=== PATIENT | male | born 1990 | race Caucasian/White ===

== ENCOUNTER 2017-10-20 08:51 | Emergency (ER) | payer OTHER ==
--- NOTE | 2017-10-20 09:09 | EDPHY ---
General Narrative: CHIEF COMPLAINT: Vomiting, diarrhea, high blood sugars HISTORY OF PRESENT ILLNESS: Patient complains of vomiting, diarrhea and high blood sugar. Over the past 24 hr he has had multiple episodes of vomiting and some diarrhea. No severe abdominal pain with this. He does note his blood sugars have been between 300- 350, as raised by his Dexcom monitoring device. He is also tested this by fingerstick with the same readings. He is still very dehydrated and thirsty, his urination has been frequent. He has a home urine test kit which did reveal ketones. He had a recent influenza type symptoms over [place] that he thinks has resolved. He has no sore throat or cough. No chest pain or shortness of breath. No rashes or lesions. No headache, neck pain or stiffness. No other associated complaints or modifying factors. REVIEW OF SYSTEMS: Ten systems reviewed and are negative unless otherwise noted in the HPI PCP: Dr. 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 Occasional rare alcohol use. No drug use. 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 Airway patent. No erythema or edema Neck: Normal inspection, supple, non-tender Respiratory: Lungs are clear to auscultation. No wheezing, rhonchi or crackles Cardiovascular: Tachycardic rate with regular rhythm. Gastrointestinal: Abdomen is soft and nontender. No distention or tympany. No rigidity. No guarding Back: non-tender, no bony abnormalities Neurological: GCS 15. A&O, nonfocal, strength is symmetric in all 4 limbs. Skin: Warm and dry, no rash cellulitis or lesions. Extremities: Nontender, no pedal edema Psychiatric: Mood and affect normal DIFFERENTIAL DIAGNOSES: Including but not limited to DKA, HHS, hyperglycemia, influenza, gastroenteritis MDM: 9:10 a.m. Vomiting with diarrhea and hyperglycemia with suspected DKA. Patient also noted ketones in his urine this morning. He is awake and alert no acute distress. No delirium or encephalopathy. Vital signs are stable with exception of tachycardia. He is afebrile. He does not meet SIRS criteria. I have ordered DKA workup including 2 L IV fluid, chest x-ray, urine and influenza test. I will discuss with Dr. Geronimo 9:20 a.m. Chemistry reveals a glucose of 222, anion gap of 19. VBG reveals a normal pH is 7.38. I have ordered 5 U of regular insulin IV. We will continue IV fluid resuscitation and recheck. 10:05 a.m. Patient is positive for influenza A. Chest x-ray is unremarkable for pneumonia or effusion. Vital signs remained stable with mild tachycardia but no hypoxia. He has received IV fluid and IV insulin. I will recheck his chemistry 10:30 a.m. Patient re-evaluated. Resting comfortably. Heart rate is improved to 103 beats per minute. He has received 2 L IV fluid. Will recheck his chemistry for anion gap evaluation at 10:45 a.m., 1 hr post insulin injection. 10:55 a.m. Repeat chemistries been drawn. I have re-evaluated the patient at this time. He has had 2 additional bouts of diarrhea since arrival, thus I have ordered a GI pathogen panel and 3rd L of IV fluid. 1:00 p.m. Repeat chemistry reveals minimal improvement in his electrolytes but these are stable. He does have some improvement in the glucose as well. Dr. Geronimo has evaluated this and he will evaluate the patient. 1:05 p.m. Patient has been evaluated by Dr. Geronimo. He is not febrile. We have ordered Tylenol, ibuprofen, nausea medicine IV fluid. Re-evaluated 1 hr. 2:15 p.m. Patient re-evaluated. This is 1 hr post Tylenol, ibuprofen, Zofran and additional L IV fluid. He is no longer nauseated. He has not vomited. He has provide a stool sample. I offered admission to the hospital for further fluid resuscitation and glucose management. He has declined. He would like to go home. I do feel that this is reasonable at this time. He does have a positive influenza, thus he will likely have symptoms for 1-2 weeks. We discussed strict ED precautions for any difficulty keeping liquids down, persistent fever or increasing blood sugar. We discussed increasing his fluid intake, nausea medications and Tylenol with codeine. We also discussed Tamiflu as commenced here. He is comfortable this plan. He will contact his primary care physician. He is discharged home stable condition. 3:55 p.m. Patient has already been discharged with I have reviewed his GI pathogen panel. It is positive for norovirus. I have just contacted him to discuss. We discussed hand hygiene and the importance of increasing his fluid intake. He is comfortable this plan at this time he is still feeling well post discharge. SUPERVISION: Patient was evaluated and examined in conjunction with my secondary supervising physician as documented. We have both examined the patient. - Diagnostics Imaging Results: Imaging Impressions Chest X-Ray 10/20/17 09:09 Impression: 1. No definite pneumonia. 2. No pleural effusion or pneumothorax. - History Smoking Status: Never smoked - Objective Vital Signs: Initial Vital Signs Temperature (C) 99.1 F 10/20/17 08:54 Heart Rate 135 H 10/20/17 08:54 Respiratory Rate 20 10/20/17 08:54 Blood Pressure 95/62 L 10/20/17 08:54 O2 Sat (%) 95 10/20/17 08:54 O2 Delivery Mode Room Air Allergies/Adverse Reactions: wheat Allergy (Verified 10/20/17 08:53) Home Medications: Medication Instructions Recorded Acetaminophen/Codeine 300/30Mg 1 each PO Q6 PRN #7 tab 10/20/17 [Tylenol #3 (*)] Humalog 10/20/17 Lantus Syringe 10/20/17 Ondansetron Odt [Zofran Odt 4 mg 4 mg PO Q6 PRN #12 tab 10/20/17 (*)] Oseltamivir Phosphate [Tamiflu 75 75 mg PO BID #10 cap 10/20/17 mg (*)] Promethazine HCl [Phenergan 25mg 25 mg PO Q8 PRN #12 tab 10/20/17 (*)] Laboratory Results: Laboratory Results 10/20/17 09:00 10/20/17 12:25 10/20/17 10/20/17 10/20/17 12:25 10:31 09:50 WBC RBC Hgb Hct MCV MCH MCHC RDW Plt Count MPV Neut % (Auto) Lymph % (Auto) [place] % (Auto) Eos % (Auto) Baso % (Auto) Nucleat RBC Rel Count Absolute Neuts (auto) Absolute Lymphs (auto) Absolute Monos (auto) Absolute Eos (auto) Absolute Basos (auto) Absolute Nucleated RBC Immature Gran % Immature Gran # Puncture Site Patient Temperature VBG pH VBG HCO3 VBG Total CO2 VBG O2 Saturation VBG Base Excess Mixed VBG pCO2 Mixed VBG pO2 Sodium 141 mEq/L mEq/L 142 mEq/L mEq/L (135-145) (135-145) Potassium 4.7 mEq/L mEq/L 4.9 mEq/L mEq/L (3.5-5.2) (3.5-5.2) Chloride 108 mEq/L mEq/L 107 mEq/L mEq/L (97-110) (97-110) Carbon Dioxide 21 mEq/l L mEq/l 21 mEq/l L mEq/l (22-31) (22-31) Anion Gap 12 mEq/L mEq/L 14 mEq/L mEq/L (8-16) (8-16) BUN 15 mg/dL mg/dL 17 mg/dL mg/dL (7-23) (7-23) Creatinine 0.7 mg/dL mg/dL 0.8 mg/dL mg/dL (0.7-1.3) (0.7-1.3) Estimated GFR > 60 > 60 Glucose 171 mg/dL H mg/dL 194 mg/dL H mg/dL (70-100) (70-100) Calcium 8.7 mg/dL mg/dL 9.2 mg/dL mg/dL (8.5-10.4) (8.5-10.4) Phosphorus Magnesium Beta-Hydroxybutyrate Urine Color GERONIMO Urine Appearance HAZY Urine pH 5.0 (5.0-7.5) Ur Specific [place] 1.027 (1.002-1.030) Urine Protein 1+ H (NEGATIVE) Urine Ketones 2+ H (NEGATIVE) Urine Blood NEGATIVE (NEGATIVE) Urine Nitrate NEGATIVE (NEGATIVE) Urine Bilirubin NEGATIVE (NEGATIVE) Urine Urobilinogen NEGATIVE EU EU (0.2-1.0) Ur Leukocyte Esterase NEGATIVE (NEGATIVE) Urine RBC 3-5 /hpf H /hpf (0-3) Urine WBC 1-3 /hpf /hpf (0-3) Ur Epithelial Cells NONE SEEN /lpf /lpf (NONE-1+) Urine Mucus 4+ /lpf H /lpf (NONE-1+) Urine Glucose 3+ H (NEGATIVE) Nasal Influenza A PCR Nasal Influenza B PCR 10/20/17 10/20/17 10/20/17 09:00 09:00 09:00 WBC 13.30 10^3/uL H 10^3/uL (3.80-9.50) RBC 5.57 10^6/uL 10^6/uL (4.40-6.38) Hgb 17.1 g/dL g/dL (13.7-17.5) Hct 48.6 % % (40.0-51.0) MCV 87.3 fL fL (81.5-99.8) MCH 30.7 pg pg (27.9-34.1) MCHC 35.2 g/dL g/dL (32.4-36.7) RDW 12.6 % % (11.5-15.2) Plt Count 352 10^3/uL 10^3/uL (150-400) MPV 9.3 fL fL (8.7-11.7) Neut % (Auto) 93.0 % H % (39.3-74.2) Lymph % (Auto) 1.7 % L % (15.0-45.0) [place] % (Auto) 4.7 % % (4.5-13.0) Eos % (Auto) 0.0 % L % (0.6-7.6) Baso % (Auto) 0.2 % L % (0.3-1.7) Nucleat RBC Rel Count 0.0 % % (0.0-0.2) Absolute Neuts (auto) 12.37 10^3/uL H 10^3/uL (1.70-6.50) Absolute Lymphs (auto) 0.23 10^3/uL L 10^3/uL (1.00-3.00) Absolute Monos (auto) 0.62 10^3/uL 10^3/uL (0.30-0.80) Absolute Eos (auto) 0.00 10^3/uL L 10^3/uL (0.03-0.40) Absolute Basos (auto) 0.03 10^3/uL 10^3/uL (0.02-0.10) Absolute Nucleated RBC 0.00 10^3/uL 10^3/uL (0-0.01) Immature Gran % 0.4 % % (0.0-1.1) Immature Gran # 0.05 10^3/uL 10^3/uL (0.00-0.10) Puncture Site Patient Temperature VBG pH VBG HCO3 VBG Total CO2 VBG O2 Saturation VBG Base Excess Mixed VBG pCO2 Mixed VBG pO2 Sodium 142 mEq/L mEq/L (135-145) Potassium 4.7 mEq/L mEq/L (3.5-5.2) Chloride 101 mEq/L mEq/L (97-110) Carbon Dioxide 22 mEq/l mEq/l (22-31) Anion Gap 19 mEq/L H mEq/L (8-16) BUN 19 mg/dL mg/dL (7-23) Creatinine 0.9 mg/dL mg/dL (0.7-1.3) Estimated GFR > 60 Glucose 222 mg/dL H mg/dL (70-100) Calcium 10.6 mg/dL H mg/dL (8.5-10.4) Phosphorus 3.0 mg/dL mg/dL (2.5-4.5) Magnesium 1.8 mg/dL mg/dL (1.6-2.3) Beta-Hydroxybutyrate 0.83 mmol/L H mmol/L (0.02-0.27) Urine Color Urine Appearance Urine pH Ur Specific [place] Urine Protein Urine Ketones Urine Blood Urine Nitrate Urine Bilirubin Urine Urobilinogen Ur Leukocyte Esterase Urine RBC Urine WBC Ur Epithelial Cells Urine Mucus Urine Glucose Nasal Influenza A PCR FLU A DETECTED (NEGATIVE) Nasal Influenza B PCR NEGATIVE FOR FLU B (NEGATIVE) 10/20/17 09:00 WBC RBC Hgb Hct MCV MCH MCHC RDW Plt Count MPV Neut % (Auto) Lymph % (Auto) [place] % (Auto) Eos % (Auto) Baso % (Auto) Nucleat RBC Rel Count Absolute Neuts (auto) Absolute Lymphs (auto) Absolute Monos (auto) Absolute Eos (auto) Absolute Basos (auto) Absolute Nucleated RBC Immature Gran % Immature Gran # Puncture Site VENOUS Patient Temperature 37.0 DEGREES DEGREES VBG pH 7.38 (7.31-7.42) VBG HCO3 23 mEQ/L mEQ/L (22-26) VBG Total CO2 24 mEq/L mEq/L (23-27) VBG O2 Saturation 54 % L % (65-75) VBG Base Excess -1.5 mEq/L mEq/L (-2.5-2.5) Mixed VBG pCO2 39 mmHg L mmHg (40-44) Mixed VBG pO2 30 mmHg L mmHg (35-40) Sodium Potassium Chloride Carbon Dioxide Anion Gap BUN Creatinine Estimated GFR Glucose Calcium Phosphorus Magnesium Beta-Hydroxybutyrate Urine Color Urine Appearance Urine pH Ur Specific [place] Urine Protein Urine Ketones Urine Blood Urine Nitrate Urine Bilirubin Urine Urobilinogen Ur Leukocyte Esterase Urine RBC Urine WBC Ur Epithelial Cells Urine Mucus Urine Glucose Nasal Influenza A PCR Nasal Influenza B PCR Microbiology Results: MICROBIOLOGY 10/20/17 14:00 Stool Gastrointestinal Tract Panel (PCR) - Final Norovirus Gi/Gii Medications Given: Discontinued Medications Acetaminophen (Tylenol) 1,000 mg PO EDNOW ONE Stop: 10/20/17 13:05 Last Admin: 10/20/17 13:21 Dose: 1,000 mg Sodium Chloride (Ns) 1,000 mls @ 0 mls/hr IV ONCE ONE; Wide Open PRN Reason: Protocol Stop: 10/20/17 09:00 Last Admin: 10/20/17 09:13 Dose: 1,000 mls Sodium Chloride (Ns) 1,000 mls @ 0 mls/hr IV EDNOW ONE; Wide Open PRN Reason: Protocol Stop: 10/20/17 09:11 Last Admin: 10/20/17 09:14 Dose: 1,000 mls Sodium Chloride (Ns) 1,000 mls @ 0 mls/hr IV EDNOW ONE; Wide Open PRN Reason: Protocol Stop: 10/20/17 10:55 Last Admin: 10/20/17 10:56 Dose: 1,000 mls Sodium Chloride (Ns) 1,000 mls @ 0 mls/hr IV EDNOW ONE; Wide Open PRN Reason: Protocol Stop: 10/20/17 13:05 Last Admin: 10/20/17 13:21 Dose: 1,000 mls Ibuprofen (Motrin) 600 mg PO EDNOW ONE Stop: 10/20/17 13:05 Last Admin: 10/20/17 13:21 Dose: 600 mg Insulin Human Regular (Humulin R) 5 unit IVP EDNOW ONE Stop: 10/20/17 09:28 Last Admin: 10/20/17 09:42 Dose: 5 units Insulin Human Regular (Humulin R) 5 unit IVP EDNOW ONE Stop: 10/20/17 11:02 Last Admin: 10/20/17 11:11 Dose: 5 units Ondansetron HCl (Zofran) 4 mg IVP EDNOW ONE Stop: 10/20/17 13:05 Last Admin: 10/20/17 13:21 Dose: 4 mg Oseltamivir Phosphate (Tamiflu) 75 mg PO EDNOW ONE Stop: 10/20/17 11:31 Last Admin: 10/20/17 12:24 Dose: 75 mg Departure - Departure Disposition: Home, Routine, Self-Care Clinical Impression: Influenza A, Norovirus Diabetes mellitus with hyperglycemia Qualifiers: Diabetes mellitus type: type 1 Qualified Code(s): E10.65 - Type 1 diabetes mellitus with hyperglycemia Condition: Good Instructions: Type 1 Diabetes in Adults (ED), Influenza (ED) Additional Instructions: 1. Increase fluid intake 2. Close monitoring of your fingerstick blood sugars 3. Medications as prescribed to completion 4. Contact primary care physician to be re-evaluated within 24 hr 5. Return to ED immediately for vomiting, fever, blood sugar greater than 200 or worsening symptoms 6. Return to ED if unable to be seen by primary care physician within 24 hr Referrals: KARINA GILLESPIE [Primary Care Provider] - As per Instructions Stand Alone Forms: Work Excuse Prescriptions: Acetaminophen/Codeine 300/30Mg [Tylenol #3 (*)] 1 each PO Q6 PRN #7 tab PRN Reason: Pain, Mild Ondansetron Odt [Zofran Odt 4 mg (*)] 4 mg PO Q6 PRN #12 tab PRN Reason: Nausea/Vomiting, Use 1st Oseltamivir Phosphate [Tamiflu 75 mg (*)] 75 mg PO BID #10 cap Promethazine HCl [Phenergan 25mg (*)] 25 mg PO Q8 PRN #12 tab PRN Reason: Nausea/Vomiting, Use 1st
[2017-10-20] MEDS ORDERED: NS 1,000 ML IV ONE ×3 (09:10→13:04)
[2017-10-20 09:11] LABS: PLATELET COUNT 352 10^3/uL (150-400)
[2017-10-20] MEDS: NS 1,000 ML IV ONE ×2 (09:12→09:13)
[2017-10-20] MEDS ORDERED: INSULIN REGULAR HUMAN 100 UNIT/ML IVP ONE (09:27)
[2017-10-20] MEDS ORDERED: INSULIN REGULAR HUMAN 100 UNIT/ML UNIT ONE (09:37)
[2017-10-20] MEDS ORDERED: INSULIN REGULAR HUMAN 100 UNIT/ML UNIT IVP ONE (11:01)
[2017-10-20] MEDS ORDERED: OSELTAMIVIR PHOSPHATE 75 MG CAP PO ONE (11:30)
[2017-10-20] MEDS ORDERED: IBUPROFEN 600 MG TAB PO ONE (13:04)
[2017-10-20] MEDS ORDERED: ONDANSETRON 4 MG/2 ML VIAL IVP ONE (13:04)
[2017-10-20] MEDS ORDERED: ACETAMINOPHEN 500 MG TAB PO ONE (13:04)
[2017-10-20 15:15] VITALS: BP 110/55; PULSE 93; RESP 16; TEMP 99; O2SAT 94
== END 2017-10-20 15:15 | disposition home or self-care (01) ==
DX: E10.65 Type 1 diabetes mellitus with hyperglycemia (principal); J10.1 Influenza due to other identified influenza virus with other respiratory manifestations; A08.11 Acute gastroenteropathy due to Norwalk agent; E86.9 Volume depletion, unspecified
CPT/HCPCS: 96374; J1815; J2405